=== PATIENT | female | born 1960 | race Caucasian/White ===

== ENCOUNTER 2018-05-25 00:16 | Outpatient (CLI) | payer BC, SELFPAY ==
[2018-05-25 10:23] LABS: Anion Gap 6.4 mmol/L (3-11); BUN 23 mg/dL (7-18); CO2 29.6 mmol/L (21.0-32.0); CREATININE 0.81 mg/dL (0.55-1.02); Calcium 8.8 mg/dL (8.5-10.1); Chloride 107 mmol/L (98-107); Cholesterol 207 mg/dL (50-200); Glucose 90 mg/dL (70-100); HDL Cholesterol 84 mg/dL (40-60); LDL CHOLESTEROL 115 mg/dL (<100); Potassium 4.2 mmol/L (3.5-5.1); Sodium 143 mmol/L (136-145); TSH 1.63 uIU/mL (0.358-3.74); Triglyceride 39 mg/dL (30-150)
[2018-05-25 10:40] LABS: FREE T4 1.43 ng/dL (0.76-1.46)
== END 2018-05-25 00:36 ==
PROVIDERS: PCP Nurse Practitioner Family; Visit Provider Nurse Practitioner Family
DX: E03.9 Hypothyroidism, unspecified (principal)
CPT/HCPCS: 36415; 80048; 80061; 83721; 84439; 84443

== ENCOUNTER 2022-11-16 04:22 | Outpatient (CLI) | payer BC, SELFPAY ==
[2022-11-16 07:44] LABS: HCT 41.6 % (36.0-46.0); HGB 13.9 g/dL (11.2-15.7); MCH 30.6 pg (27.0-33.0); MCHC 33.4 % (32.0-36.0); MCV 92 fL (80-95); Platelet Count 184 10^3/uL (130-400); RBC 4.54 10^6/uL (3.93-5.22); RDW-SD 47.6 fL; WBC 4.03 10^3/uL (4.4-10.8)
[2022-11-16 08:30] LABS: ALT 24 U/L (14-59); AST 17 U/L (15-37); Alkaline Phosphatase 98 U/L (46-116); Anion Gap 4.6 mmol/L (3-11); BUN 27 mg/dL (7-18); Bilirubin, Total 0.7 mg/dL (0.2-1.0); CO2 32.4 mmol/L (21.0-32.0); CREATININE 0.9 mg/dL (0.55-1.02); Calcium 9.3 mg/dL (8.5-10.1); Calculated LDL 139 mg/dL (<100); Chloride 103 mmol/L (98-107); Cholesterol 234 mg/dL (<200); Estimated GFR 73.19 (mL/min/1.73m2); Glucose 82 mg/dL (74-106); HDL Cholesterol 86 mg/dL (40-60); Magnesium 1.8 mg/dL (1.8-2.4); Potassium 3.8 mmol/L (3.5-5.1); Sodium 140 mmol/L (136-145); TSH (W/Ref FT4) 1.96 uIU/mL (0.36-3.74); Total Protein 7.1 g/dL (6.4-8.2); Triglyceride 49 mg/dL (<150)
== END 2022-11-16 04:23 | disposition home or self-care (01) ==
LOC: LBO 04:22
PROVIDERS: PCP Student in an Organized Health Care Education/Training Program; Visit Provider Student in an Organized Health Care Education/Training Program
DX: E89.0 Postprocedural hypothyroidism (principal)
CPT/HCPCS: 36415; 80053; 80061; 85027; 83735; 84443

== ENCOUNTER 2023-06-28 07:35 | Day surgery (SDC) | payer BC, SELFPAY ==
--- NOTE | 2023-06-27 20:09 | W.PM.DSUDISC ---
Date of service: 06/28/23 Time of Service: 09:24 Discharge Plan Disposition Patient Disposition: Home Condition: Good Discharge Details Reason For Visit: screening colonoscopy Attending Provider: Pepe Hernandez Primary Care Provider: Sirena Garrett Home Meds and New Rx's Prescriptions: Continued acetaminophen 500 mg capsule 500 mg PO Q6H PRN calcium carbonate-vitamin D3 600 mg-25 mcg (1,000 unit) capsule 1 cap PO DAILY Patient Comments: [facility] note 02/06/22.[facility] melatonin 3 mg capsule 3 mg PO HS PRN (Reason: sleep; restless legs) losartan 25 mg tablet 25 mg PO BID Qty: 180 3RF Rx Instructions: Continue 25mg (NOT 50mg) levothyroxine 88 mcg tablet 88 mcg PO DAILY Qty: 90 4RF fluticasone propionate [Flonase Allergy Relief] 50 mcg/actuation spray,suspension 1 spray intranasal DAILY PRN (Reason: allergy symptoms) Qty: 16 1RF Rx Instructions: administer into each nostril Discontinued bisacodyl [Dulcolax (bisacodyl)] 5 mg tablet,delayed release (DR/EC) 5 mg PO ONCE Qty: 4 0RF Rx Instructions: Take per colonoscopy instructions provided by ordering providers office polyethylene glycol 3350 17 gram/dose powder 17 g PO ONCE Qty: 238 0RF Rx Instructions: Take per colonoscopy instructions provided by ordering providers office docusate sodium 100 mg capsule 100 mg PO DAILY PRN Discharge Instructions Instructions: Hemorrhoids (GEN) Additional Instructions: Catheter in, We were able to complete your colonoscopy today without any issues. The quality of your prep was excellent. I saw everything just fine. I did not see any signs of tumors, polyps, or anything worrisome. Incidentally, you do have a little bit of internal hemorrhoids. I have attached some basic information here regarding typical treatment for hemorrhoid disease. 1. If tolerated, consume a soft, low fiber diet for 1-2 days. 2[address] Do not drive, drink alcohol, operate machinery, make critical decisions, or do activities that require coordination or balance for 24 hours. 3. Because air was put into your colon during the procedure, expelling air from your rectum (passing gas or farting) is normal. 4. You may not have a bowel movement for 1-3 days because of the colonoscopy prep. This is normal. 5. Go directly to the emergency room if you notice any of the following: Develop chills (warm to touch), or if you have a thermometer and your temperature is above 101 Difficulty breathing or difficultly swallowing Persistent vomiting Severe abdominal pain, other than gas cramps Severe chest pain Black, tarry stools Any bleeding ? exceeding one tablespoon 6. Call your physician if the site where your intravenous was started becomes red, swollen, painful, and warm to touch. 7. Your physician has reviewed your pre-procedure medications. Please continue to take those medications as previously ordered. You will be given specific information/education regarding any changes to your medications before leaving. Activity:: Activity as Tolerated Diet:: As Tolerated Discharge Orders Discharge Orders: Discharge Order (Routine); Ordered 06/27/23 Ordered By: Pepe Hernandez DS: Diagnosis Discharge Diagnosis (1) Screen for colon cancer: Status: Acute
--- NOTE | 2023-06-27 20:11 | COLE_ITS ---
Date of service: 06/28/23 Time of Service: 09:25 Colonoscopy Report Date of procedure: 06/28/23 Pre-op diagnosis general: Screening colonoscopy Post-op diagnosis procedure note: other (Negative screening colonoscopy, internal hemorrhoids) Procedure: Colonoscopy Surgeon: Pepe Hernandez Anesthesia Type: General:No Airway Estimated blood loss (mL): 0 Pathology: none sent Complications: None Disposition: same day Indications: Caren is a 63 year old woman who needs another screening colonoscopy Prep: Miralax/Dulcolax Procedure Start Time: 08:59 Procedure End Time: 09:11 Retraction Time: 8 Findings: Negative screening colonoscopy Procedure Description: After the induction of monitored anesthetic care, and with the patient in left lateral decubitus position, I began by performing an external anorectal exam.? Perineum and skin were normal, as was the anal verge.? There was no evidence of external hemorrhoids.? Next, I performed a digital rectal exam.? I did not appreciate any abnormal findings.? Next, I advanced a colonoscope into the rectal vault.? I performed retroflexion.? There are grade 1 internal hemorrhoids.? Using insufflation, I then advanced the colonoscope beyond the rectal folds and into the sigmoid colon before advancing towards the cecum.? The quality of the prep was excellent.? The scope was noted to be in the cecum by identification of the ileocecal valve and appendiceal orifice.? I then began wi thdrawing the colonoscope using repeated irrigation as necessary for full evaluation of the colonic mucosa. ?Once the scope was withdrawn to the level of the rectum, great care was taken to examine portions of the rectal folds.? I did not see any signs of tumors, polyps, or any other worrisome pathology. Finally, the scope was withdrawn and the patient was brought to the same-day surgery recovery unit as the anesthetic wore off. ?The findings and instructions were shared with the patient prior to discharge. M[place]icus Bowel Prep M[place]icus Bowel Prep Right Colon: 3 Left Colon: 3 Transverse Colon: 3 Total Score: 9
[2023-06-28 07:58] VITALS: BP 133/81; PULSE 77; RESP 18; TEMP 36.5; O2SAT 100
[2023-06-28] MEDS: Lactated Ringers 1,000 ML 80 ML IV (08:18)
--- NOTE | 2023-06-28 08:48 | W.ANESPRE ---
General Info Date of Service Date Performed: 06/28/23 Height: 5 ft 6.5 in Weight: 76.5 kg Body Mass Index (BMI): 26.8 Surgical Procedure: Operation Date: 06/28/23 09:05 Proposed Procedure Side Surgeon harika Hernandez MD Meds Allergies and Home Medications Allergies Allergy/AdvReac Type Severity Reaction Status Date / Time codeine AdvReac Mild Unverified 06/28/23 07:54 Home Medication Medication Instructions Recorded acetaminophen 500 mg capsule 500 mg PO Q6H PRN 11/09/22 calcium carbonate 600 mg-vitamin 1 cap PO DAILY 11/09/22 D3 25 mcg (1,000 unit) capsule melatonin 3 mg capsule 3 mg PO HS PRN sleep; restless legs 12/04/22 fluticasone propionate 50 1 spray intranasal DAILY PRN 06/14/23 mcg/actuation nasal allergy symptoms #16 grams spray,suspension (Flonase Allergy Relief) levothyroxine 88 mcg tablet 88 mcg PO DAILY #90 tab-caps 06/14/23 losartan 25 mg tablet 25 mg PO BID #180 tabs 06/14/23 Current Visit Medications: Current Medications Generic Name Dose Route Start Last Admin Trade Name Freq PRN Reason Stop Dose Admin Hyoscyamine Sulfate 0.125 mg 06/27/23 20:13 Hyoscyamine 0.125 Mg Sl/Oral/Chew SL 07/27/23 20:12 DIRECTED PRN Ringer's Solution 1,000 mls @ 80 mls/hr 06/28/23 06:00 06/28/23 08:18 IV 07/27/23 23:59 80 mls/hr INFUSION PEDRO Administration IV Miscellaneous Supplies 1 each 06/28/23 06:00 Iv Access IV 07/27/23 23:59 DIRECTED PEDRO Ondansetron HCl 4 mg 06/27/23 20:13 Ondansetron 4 Mg/2 Ml Vial IVP 07/27/23 20:12 Q4H PRN PRN Nausea / Vomiting Sodium Chloride 0 ml 06/28/23 06:00 Normal Saline Flush 10 Ml Syr IV 07/27/23 23:59 PRN PRN Sodium Chloride 0 ml 06/28/23 06:00 Normal Saline 10 Ml Vial IJ 07/27/23 23:59 DIRECTED PRN Sterile Water 0 ml 06/28/23 06:00 Water,Injection,Sterile 10 Ml Vial IJ 07/27/23 23:59 DIRECTED PRN PFS Active Problems Active Problems: Problem Status Onset Code Medical history reviewed with no changes Snoring R06.83 RLS (restless legs syndrome) G25.81 Neuropathy G62.9 Mitral valve prolapse I34.1 Multiple thyroid nodules E04.2 Hypertension I10 Cervical spondylosis with radiculopathy M47.22 Hypothyroidism, postradioiodine therapy E89.0 Hyperlipidemia E78.5 Allergic rhinitis 04/01/13 J30.9 Medical History Medical History 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 Tobacco Smoking/Tobacco Use Status: Former Tobacco Use Passive smoking exposure: No Alcohol Alcohol Intake: never Substance Use Substance use: Never Substance use type: does not use Vital Signs and Lab Results Vital Signs Most Recent Vital Signs in EMR: Most Recent Vital Signs Temp Pulse Resp BP Pulse Ox 36.5 C 77 18 133/81 100 06/28/23 07:58 06/28/23 07:58 06/28/23 07:58 06/28/23 07:58 06/28/23 07:58 Lab Results Blood Type / Crossmatch: No Data to Display Complete Blood Count: No Data to Display Complete Metabolic Panel: No Data to Display Liver Function Panel: No Data to Display Coagulation Panel: No Data to Display Cardiac Panel: No Data to Display Arterial Blood Gas: No Data to Display Venous Blood Gas: No Data to Display Pancreas Panel: No Data to Display Thyroid Panel: No Data to Display Infectious Disease: No Data to Display Blood Cultures: No Data to Display Toxicology Panel: No Data to Display Anesthesia Assessment and Plan Anesthesia History Personal History: No History of Anesthesia Complications Family History: No Family History of Anesthesia Complications Exercise Tolerance Exercise Tolerance: Metabolic Equivalents>4 Pertinent Negatives Pertinent Negatives: No Symptoms of GERD Cardiac & Pulmonary Exam Cardiac Exam: Heart Murmur Present Pulmonary Exam: Clear Bilateral Breath Sounds Implantable Cardiac Device Does patient have a Pacemaker or an ICD?: No Airway Exam Known Difficult Airway: No Mallampati Class: 2 Mouth Opening: Normal (> 3cm) Thyromental Distance: Greater than 3 cm Neck Range of Motion: Full ROM Neck Circumference: Normal Teeth Condition: Normal Dentition ASA Classification ASA Score: ASA 2 Emergency Case?: No NPO Status NPO Status: NPO Clears >2 hours, Solids >8 hours Anesthesia Plan Resuscitation Status: Full Code Anesthesia Technique: General Anesthesia Airway Planned: Natural Airway Monitors Used: Standard Monitors
[2023-06-28 08:49] VITALS: BMI 26.8
--- NOTE | 2023-06-28 09:22 | W.ANESPOSTOP ---
Postoperative Evaluation Date, Time and Location Date Performed: 06/28/23 Time Performed: 09:22 Patient Location: Day Surgery Unit Vital Signs Most Recent Imported Vital Signs: Most Recent Vital Signs Temp Pulse Resp BP Pulse Ox 36.5 C 77 18 133/81 9 L 06/28/23 07:58 06/28/23 07:58 06/28/23 07:58 06/28/23 07:58 06/28/23 08:59 Pain Score Most Recent Pain Score: Most Recent Pain Score Pain Level 0 06/28/23 08:59 Assessment Mental Status: Arousable with meaningful communication Airway and Respiratory Function: Patent airway with normal (patient baseline) respiratory exam Cardiovascular Function: Hemodynamically Stable Hydration Status: Adequately Hydrated Nausea & Vomiting: No Nausea or Vomiting Pain: Pt. Denies Any Pain Peripheral Nerve Block: Patient did not receive a nerve block
[2023-06-28 09:23] VITALS: BP 108/58; PULSE 66; RESP 16; TEMP 36.4; O2SAT 97
[2023-06-28 09:47] VITALS: BP 139/69; PULSE 67; RESP 16; TEMP 36.5; O2SAT 99
== END 2023-06-28 10:39 | disposition home or self-care (01) ==
LOC: SUR 07:35
PROVIDERS: PCP Student in an Organized Health Care Education/Training Program; Visit Provider Surgery
PROC: 0DJD8ZZ Inspection of Lower Intestinal Tract, Via Natural or Artificial Opening Endoscopic (ICD-10-PCS; CPT 45378; principal; 2023-06-28 09:00)
DX: Z12.11 Encounter for screening for malignant neoplasm of colon (principal)
CPT/HCPCS: 45378; J2001

== ENCOUNTER 2023-11-07 04:12 | Outpatient (CLI) | payer BC, SELFPAY ==
[2023-11-07 12:49] LABS: Anion Gap 7.9 mmol/L (3-11); BUN 26 mg/dL (7-18); CO2 28.1 mmol/L (21.0-32.0); CREATININE 0.8 mg/dL (0.55-1.02); Calcium 9.1 mg/dL (8.5-10.1); Chloride 106 mmol/L (98-107); Estimated GFR 83.78 (mL/min/1.73m2); Glucose 96 mg/dL (74-106); Potassium 3.9 mmol/L (3.5-5.1); Sodium 142 mmol/L (136-145)
[2023-11-07 13:17] LABS: Vitamin D 25 Total 16.2 ng/mL (30-100)
== END 2023-11-07 04:13 | disposition home or self-care (01) ==
LOC: LBO 04:12
PROVIDERS: PCP Student in an Organized Health Care Education/Training Program; Visit Provider Student in an Organized Health Care Education/Training Program
DX: I10 Essential (primary) hypertension (principal); Z91.89 Other specified personal risk factors, not elsewhere classified; G62.9 Polyneuropathy, unspecified; I34.1 Nonrheumatic mitral (valve) prolapse; E04.2 Nontoxic multinodular goiter
CPT/HCPCS: 36415; 80048; 82306; 83735

== ENCOUNTER 2024-02-18 03:07 | Outpatient (CLI) | payer BC, SELFPAY ==
[2024-02-18 15:50] LABS: TSH (W/Ref FT4) 0.94 uIU/mL (0.36-3.74); Vitamin D 25 Total 38.8 ng/mL (30-100)
== END 2024-02-18 03:08 | disposition home or self-care (01) ==
LOC: LBO 03:07
PROVIDERS: PCP Student in an Organized Health Care Education/Training Program; Visit Provider Student in an Organized Health Care Education/Training Program
DX: K90.9 Intestinal malabsorption, unspecified (principal); E89.0 Postprocedural hypothyroidism; E04.2 Nontoxic multinodular goiter
CPT/HCPCS: 36415; 82306; 84443

== ENCOUNTER 2025-04-03 01:10 | Outpatient (CLI) | payer BC, SELFPAY ==
[2025-04-03 08:30] LABS: Anion Gap 6.5 mmol/L (3-11); BUN 29 mg/dL (7-18); CO2 30.5 mmol/L (21.0-32.0); Calcium 9.4 mg/dL (8.5-10.1); Calculated LDL 110 mg/dL (<100); Chloride 106 mmol/L (98-107); Cholesterol 196 mg/dL (<200); Estimated GFR 72.28 (mL/min/1.73m2); Glucose 86 mg/dL (74-106); HDL Cholesterol 77 mg/dL (>or=50); Potassium 4.6 mmol/L (3.5-5.1); Sodium 143 mmol/L (136-145); TSH (W/Ref FT4) 0.42 uIU/mL (0.36-3.74); Triglyceride 47 mg/dL (<150)
== END 2025-04-03 01:11 | disposition home or self-care (01) ==
LOC: LBO 01:10
PROVIDERS: PCP Nurse Practitioner Family; Referring Provider Nurse Practitioner Family; Visit Provider Nurse Practitioner Family
DX: E89.0 Postprocedural hypothyroidism (principal); I10 Essential (primary) hypertension; E78.5 Hyperlipidemia, unspecified
CPT/HCPCS: 36415; 80048; 80061; 84443

== ENCOUNTER 2025-04-16 00:20 | Outpatient (CLI) | payer BC, SELFPAY ==
--- NOTE | 2025-04-16 06:15 | DI.US_ITS ---
Exam(s) US THYROID EXAM: US THYROID CLINICAL HISTORY: Re-eval nodules, HYPOTHYROIDISM, POSTRADIOIODINE THERAPY, NONTOXIC. TECHNIQUE: Ultrasound thyroid performed using standard protocol. COMPARISON: US US THYROID from 11/23/2022 US US THYROID from 11/23/2023 FINDINGS: There has apparently been prior biopsy. There are no findings in the left lobe nor in the isthmus. Again noted is a solitary solid nodule in the right lobe. Details as follows: RIGHT THYROID LOBE: Measures 1.3 cm AP x 1.3 cm wide x 0.6 cm craniocaudal With respect to the solitary nodule in the right lobe: Size of this nodule: Measures 1.8 x 1.2 x 0.9 cm (which is similar to previous) Composition: Predominately solid-2 points Echogenicity: Solid components are isoechoic to surrounding parenchyma-1 point Shape: Taller than wider in the transverse plane-3 points Margin: Smooth- 0 points Echogenic Foci: Contains a few small punctate echogenic foci-3 points Total Points for this nodule: 9 ACR Ti-Rads Category: TR5 This TR 5 level nodule qualifies for ultrasound-guided FNA as it measures greater than 1 cm ISTHMUS: Normal thickness. There are no nodules in the isthmus. LEFT THYROID LOBE: Measures 0.9 cm AP x 0.9 wide x 2.2 cm craniocaudal There are no nodules in the left lobe. LYMPH NODES: Small benign-appearing lymph nodes both sides the neck. There is, however, no significant lymphadenopathy. IMPRESSION: 1. Solitary solid nodule in the right thyroid lobe as described above. This is a TR 5 level nodule which qualifies for ultrasound guided FNA as it measures greater than 1 cm. It has apparently been previously biopsied. It does not appear to have significantly increased in size when compared to prior ultrasound exams. 2. There is no significant lymphadenopathy. DATA REPOSITORY:
--- NOTE | 2025-04-16 08:25 | DI.MAMMO_ITS ---
Exam(s) MAMMO SCREENING EXAM: MAMMO SCREENING CLINICAL HISTORY: screening, Z12.39. TECHNIQUE: Bilateral full field digital CC and MLO mammographic images were obtained with 3D tomosynthesis and utilizing computer aided detection (CAD). COMPARISON: Prior outside mammograms were reviewed. FINDINGS: There is an oval nodule in the medial aspect of the right breast which is unchanged from 2020. Benign-appearing microcalcifications posteriorly in the right breast are also unchanged. In the inferomedial aspect of the left breast there is a well-defined oval noncalcified nodule measuring 7 x 5 mm. This was not evident on prior mammograms. There are no new spiculated masses nor malignant appearing microcalcification groups. There is no significant architectural distortion nor skin thickening-retraction. IMPRESSION: There is a 7 x 5 mm new nodule located inferomedially in the left breast. This is relatively superficial within the breast and cannot exclude the fact that this is a possible skin mole which was not previously present. Recommend repeat left breast imaging with skin mole marker in place. Ultrasound may be required at the same time.. BI-RADS Category 0 - Incomplete: Need additional imaging evaluation Breast Density - Category B - There are scattered areas of fibroglandular density. Breast density Category C or D implies that the patient has dense breast tissue. Dense breast tissue can make it harder to find cancer on a mammogram. Dense breast tissue is also associated with an increased risk of breast cancer. This information about the result of the mammogram report was provided to the patient to raise their awareness. Use this report when you speak with the patient about their risks for breast cancer, which includes their family history. At that time, you may recommend additional screening tests (Ultrasound or MRI) as these tests may add significant information. A negative radiographic report should not delay biopsy if a dominant or clinically suspicious mass is present. Up to ten percent of cancers are not identified on mammography. A negative report may reinforce clinical impression. Adenosis and dense breasts may obscure an underlying neoplasm. False positive reports average 6 to 10%. Patient will receive a letter notifying them of these results.
== END 2025-04-16 00:40 ==
PROVIDERS: PCP Nurse Practitioner Family; Visit Provider Nurse Practitioner Family
DX: Z12.31 Encounter for screening mammogram for malignant neoplasm of breast (principal); E89.0 Postprocedural hypothyroidism; E04.2 Nontoxic multinodular goiter; E05.20 Thyrotoxicosis with toxic multinodular goiter without thyrotoxic crisis or storm; R92.323 Mammographic fibroglandular density, bilateral breasts
CPT/HCPCS: 77063; 77067; 76536

== ENCOUNTER 2025-04-21 15:18 | Outpatient (CLI) | payer BC, SELFPAY ==
--- NOTE | 2025-04-21 14:08 | DI.MAMMO_ITS ---
Exam(s) MG MAMMO SCREEN CALL BACK UNI US BREAST LT COMPLETE EXAM: MG MAMMO SCREEN CALL BACK UNI and U/S breast LT complete CLINICAL HISTORY: 7X5 MM NEW NODULE LT BREAST ? SKIN MOLE R92.8 ABNL MAMMO. TECHNIQUE: Craniocaudal and mediolateral oblique Full Field Digital Mammography views of the left breast with Computer Aided Diagnosis followed by Tomosynthesis and complete left breast ultrasound. All 4 quadrants of the left breast, the axilla and retroareolar region were evaluated sonographically. COMPARISON: Comparison is made with prior examinations. FINDINGS: Mammography/Tomosynthesis: Masses/Architectural Distortion: The well-circumscribed nodule in the lower inner quadrant of the left breast persists on the additional views. This was not present on prior examinations. Microcalcifictions: No suspicious pleomorphic-type are seen. Skin Thickening/Nipple Retraction: None. Complete left breast US: Echotexture: Normal appearance of the glandular tissue. Shadowing: No suspicious foci. Cyst: There is a 0.4 x 0.5 x 0.5 cm cyst at the 6 o'clock retroareolar region of the left breast. Solid lesions: There is a lobulated hypoechoic nodule at the 8 o'clock position of the left breast 5 cm from the nipple. It measures 0.4 x 0.5 x 0.5 cm. No internal blood flow is seen. This appears to correspond in location to the mammographic abnormality. Ductal dilation: None. There are normal appearing lymph nodes seen in the left axilla. IMPRESSION: 1. New 0.5 cm nodule in the lower inner quadrant of the left breast. 2. Biopsy should be considered in this patient for further evaluation. 3. The findings were discussed with the patient on the date of the examination. The findings were discussed with Althea Borges at 3 p.m. on 04/21/2025. BI-RADS Category 4 - Suspicious Abnormality: Biopsy should be considered Breast Density - Category B - There are scattered areas of fibroglandular density. Breast density Category C or D implies that the patient has dense breast tissue. Dense breast tissue can make it harder to find cancer on a mammogram. Dense breast tissue is also associated with an increased risk of breast cancer. This information about the result of the mammogram report was provided to the patient to raise their awareness. Use this report when you speak with the patient about their risks for breast cancer, which includes their family history. At that time, you may recommend additional screening tests (Ultrasound or MRI) as these tests may add significant information. A negative radiographic report should not delay biopsy if a dominant or clinically suspicious mass is present. Up to ten percent of cancers are not identified on mammography. A negative report may reinforce clinical impression. Adenosis and dense breasts may obscure an underlying neoplasm. False positive reports average 6 to 10%. Patient will receive a letter notifying them of these results.
== END 2025-04-21 15:38 ==
LOC: DI 15:18
PROVIDERS: PCP Nurse Practitioner Family; Visit Provider Nurse Practitioner Family
DX: Z12.31 Encounter for screening mammogram for malignant neoplasm of breast (principal); R92.8 Other abnormal and inconclusive findings on diagnostic imaging of breast; R92.323 Mammographic fibroglandular density, bilateral breasts
CPT/HCPCS: 76642; 77063; 77067

== ENCOUNTER 2025-06-04 01:00 | Outpatient (CLI) | payer BC, SELFPAY ==
--- NOTE | 2025-06-04 12:38 | W.NUTRFU ---
Date of service: 06/04/25 Time of Service: 11:30 Nutrition Note NOTE: nutrition visit via telephone with Caren today. She requested referral from provider after reviewing slightly high LDL (110) at last visit. TGL's, TC, HDL are all wnl. TC to HDL ratio is <3.5 LDL to HDL ratio is <2 both ratios are ideal. Caren denies excessive meat consumption - doesn't care to eat red meat often at all. We reviewed good goal of keeping SFA intake <20g per day. We reviewed good food choices that help reduce LDL to include more routinely - legumes, whole soy, non starchy veggies, oats, garlic, green tea and more. Encouraged routine exercise, stress mgt and good sleep in addition. Caren has my contact info to reach out with any questions she didn't ask during today's visit or need for further resources or follow up Time Spent in Nutritional Counseling and Treatment: 25 min
== END 2025-06-04 01:01 | disposition home or self-care (01) ==
LOC: DS 01:00
PROVIDERS: PCP Nurse Practitioner Family; Visit Provider Dietitian, Registered
DX: E78.5 Hyperlipidemia, unspecified (principal)
CPT/HCPCS: 00123; 97802

== ENCOUNTER 2025-06-10 09:37 | Outpatient (REF) | payer BC, SELFPAY | END 2025-06-10 09:38 | disposition home or self-care (01) | LOC: LBN 09:37 | PROVIDERS: PCP Nurse Practitioner Family; Visit Provider Nurse Practitioner Family | DX: Z12.4 Encounter for screening for malignant neoplasm of cervix (principal) | CPT/HCPCS: 88142; 87624 ==